=== PATIENT | male | born 2000 | race Hispanic/Latino ===

== ENCOUNTER 2021-02-07 20:33 | Emergency (ER) | payer SELFPAY ==
--- NOTE | 2021-02-07 22:35 | EDPHYS ---
Physician Documentation [facility] Name: Javier Vincent Jr Age: 20 yrs Sex: Male : 2000 Arrival Date: 02/07/2021 Time: 20:36 Bed Treatment Private MD: ED Physician Jamin Valles HPI: 02/07 23:15 This 20 yrs old Male presents to ER via Ambulatory with complaints of Knee kb Injury. 23:15 The patient presents with pain, swelling, tenderness. The complaints affect the left kb knee. Context: The problem was sustained at work, resulted from the patient falling, the patient can fully bear weight, the patient is able to ambulate, Problem is a result from a previous injury: No. Onset: The symptoms/episode began/occurred today. Modifying factors: The symptoms are alleviated by nothing. the symptoms are aggravated by weight bearing. Associated signs and symptoms: Pertinent positives: swelling, Pertinent negatives calf tenderness, fever, nausea, numbness, rash, tingling, vomiting, warmth, weakness. Treatment prior to arrival includes: no previous treatment. Severity of symptoms: At their worst the symptoms were mild, in the emergency department the symptoms are unchanged. The patient has not experienced similar symptoms in the past. The patient has not recently seen a physician. Patient reports he fell at work on 2 left knee and felt his knee slide out of place. States he came to make sure that nothing was torn. Full range of motion patient ambulates with steady gait.. Historical: - Allergies: 21:19 No Known Allergies; ca1 - Home Meds: 21:19 None [Active]; ca1 - PMHx: 21:19 None; ca1 - PSHx: 21:19 None; ca1 - Immunization history:: Client reports having NOT received the Covid vaccine. Flu vaccine is up to date. - Social history:: Smoking status: Patient denies any tobacco usage or history of. ROS: 23:12 Constitutional: Negative for fever, chills, and weight loss. kb 23:12 MS/extremity: Positive for pain, swelling, of the left knee. 23:12 All other systems are negative. Exam: 23:12 Constitutional: This is a well developed, well nourished patient who is awake, alert, kb and in no acute distress. Head/Face: Normocephalic, atraumatic. ENT: Moist Mucous membranes Respiratory: Respirations even and unlabored. No increased work of breathing, no retractions or nasal flaring. Skin: Warm, dry with normal turgor. Normal color. Neuro: Awake and alert, GCS 15, oriented to person, place, time, and situation. Moves all extremities. Normal gait. Psych: Awake, alert, with orientation to person, place and time. Behavior, mood, and affect are within normal limits. 23:12 Musculoskeletal/extremity: Extremities: grossly normal except: noted in the left knee: pain, swelling, tenderness, ROM: intact in all extremities, Circulation is intact in all extremities. Sensation intact. Weight bearing: able to fully bear weight. Vital Signs: 21:17 BP 137 / 81; Pulse 98; Resp 18 S; Temp 98.9(TE); Pulse Ox 100% on R/A; Weight 113.4 kg ca1 (R); Height 5 ft. 6 in. (167.64 cm) (R); Pain 3/10; 23:01 BP 124 / 58; Pulse 90; Resp 16 S; Pulse Ox 98% on R/A; bb 21:17 Body Mass Index 40.35 (113.40 kg, 167.64 cm) ca1 MDM: 22:00 Patient medically screened. kb 23:12 Data reviewed: vital signs, nurses notes. Data interpreted: Pulse oximetry: on room air kb is 98 %. Interpretation: normal. Counseling: I had a detailed discussion with the patient and/or guardian regarding: the historical points, exam findings, and any diagnostic results supporting the discharge/admit diagnosis, radiology results, the need for outpatient follow up, a orthopedic surgeon, to return to the emergency department if symptoms worsen or persist or if there are any questions or concerns that arise at home. 02/07 21:20 Order name: Knee Left 3 View XRAY ca1 02/07 22:34 Order name: Knee Immobilizer; Complete Time: 22:59 kb Administered Medications: No medications were administered Disposition Summary: 02/07/21 22:35 Discharge Ordered Location: Home kb Condition: Stable kb Diagnosis - Sprain of other specified parts of left knee kb Followup: kb - With: Emergency Department - When: As needed - Reason: Worsening of condition Followup: kb - With: Private Physician - When: 2 - 3 days - Reason: Recheck today's complaints, Continuance of care, Re-evaluation by your physician Discharge Instructions: - Discharge Summary Sheet kb - Knee Sprain, Adult, [id number] kb Forms: - Medication Reconciliation Form kb - Thank You Letter kb - Antibiotic Education kb - Prescription Opioid Use kb - Work release form tt3 Prescriptions: - Ibuprofen 800 mg Oral Tablet - take 1 tablet by ORAL route every 8 hours As needed take with food; 30 tablet; kb Refills: 0, Product Selection Permitted Signatures: Dispatcher [employer] Gayatri Dahl, DIRECTOR OF OCCUPATIONAL HEALTH-C Carmina Harp RN RN ca1
--- NOTE | 2021-02-07 22:35 | ER ---
Nurse's Notes [facility] Name: Javier Vincent Jr Age: 20 yrs Sex: Male : 2000 Arrival Date: 02/07/2021 Time: 20:36 Bed Treatment Private MD: Diagnosis: Sprain of other specified parts of left knee Presentation: 02/07 21:17 Chief complaint: Patient states: Fell at work today at 1800 and landed on L leg and I ca1 felt my L knee go sideways. Coronavirus screen: Client denies travel out of the [place] in the last 14 days. At this time, the client does not indicate any symptoms associated with coronavirus-19. Ebola Screen: Patient negative for fever greater than or equal to 101.5 degrees Fahrenheit, and additional compatible Ebola Virus Disease symptoms Patient denies exposure to infectious person. Patient denies travel to an Ebola-affected area in the 21 days before illness onset. No symptoms or risks identified at this time. Initial Sepsis Screen: Does the patient meet any 2 criteria? No. Patient's initial sepsis screen is negative. Does the patient have a suspected source of infection? No. Patient's initial sepsis screen is negative. Risk Assessment: Do you want to hurt yourself or someone else? Patient reports no desire to harm self or others. Onset of symptoms was February 07, 2021. 21:17 Method Of Arrival: Ambulatory ca1 21:17 Acuity: MANISHA 4 ca1 Triage Assessment: 22:18 Injury Description: pt fell at work. bb Historical: - Allergies: 21:19 No Known Allergies; ca1 - Home Meds: 21:19 None [Active]; ca1 - PMHx: 21:19 None; ca1 - PSHx: 21:19 None; ca1 - Immunization history:: Client reports having NOT received the Covid vaccine. Flu vaccine is up to date. - Social history:: Smoking status: Patient denies any tobacco usage or history of. Screenin:16 Abuse screen: Denies threats or abuse. Nutritional screening: No deficits noted. bb Tuberculosis screening: No symptoms or risk factors identified. Fall Risk None identified. Assessment: 22:16 General: Appears in no apparent distress. uncomfortable, Behavior is calm, cooperative. bb Pain: Complains of pain in left leg. Neuro: Level of Consciousness is awake, alert, obeys commands, Oriented to person, place, time, situation. Cardiovascular: Capillary refill < 3 seconds Patient's skin is warm and dry. Respiratory: Respiratory effort is even, unlabored. GI: No signs and/or symptoms were reported involving the gastrointestinal system. Derm: Skin is pink, warm \T\ dry. Musculoskeletal: Circulation, motion, and sensation intact. 22:59 Reassessment: Patient is alert, oriented x 3, equal unlabored respirations, skin bb warm/dry/pink. knee immobilizer applied, pt verbalized understanding of and agrees to plan of care discharge instructions given pt assisted to exit via wheelchair accompanied by health information technician. Vital Signs: 21:17 BP 137 / 81; Pulse 98; Resp 18 S; Temp 98.9(TE); Pulse Ox 100% on R/A; Weight 113.4 kg ca1 (R); Height 5 ft. 6 in. (167.64 cm) (R); Pain 3/10; 23:01 BP 124 / 58; Pulse 90; Resp 16 S; Pulse Ox 98% on R/A; bb 21:17 Body Mass Index 40.35 (113.40 kg, 167.64 cm) ca1 ED Course: 20:36 Patient arrived in ED. es 21:19 Triage completed. ca1 21:19 Arm band placed on right wrist. ca1 21:50 Gayatri Singh FNP-C is [facility]. kb 21:50 Jamin Valles MD is Attending Physician. kb 22:16 Marine Mendiola, RN is Primary Nurse. bb 22:16 Patient has correct armband on for positive identification. bb 22:41 Knee Left 3 View XRAY In Process Unspecified. EDMS 23:01 No provider procedures requiring assistance completed. Patient did not have IV access bb during this emergency room visit. Administered Medications: No medications were administered Outcome: 22:35 Discharge ordered by . kb 23:01 Discharged to home via wheelchair. bb 23:01 Condition: stable 23:01 Discharge instructions given to patient, Instructed on discharge instructions, follow up and referral plans. medication usage, Demonstrated understanding of instructions, follow-up care, Prescriptions given X 1. 23:02 Patient left the ED. bb Signatures: Dispatcher [employer] EDPR Gayatri Singh FNP-C FNP-Ckb IgnacioClaritza lee Brenda, RN RN bb Carmina Jones, RN RN ca1
[2021-02-08 03:48] VITALS: TEMP 98.9
[2021-02-08 03:50] VITALS: BP 124/58; O2SAT 98
--- NOTE | 2021-02-08 09:09 | RAD REPORT ---
EXAM DESCRIPTION: RAD - Knee Left 3 View - 02/07/2021 10:41 pm CLINICAL HISTORY: Left knee pain FINDINGS: No fracture or dislocation is seen. No bone or joint abnormality seen. If patient's pain persists then a followup x-ray in 4 weeks would recommended for re-evaluation
== END 2021-02-07 23:02 | disposition home or self-care (01) ==
LOC: ER 20:33
DX: S83.8X2A Sprain of other specified parts of left knee, initial encounter (principal); W19.XXXA Unspecified fall, initial encounter; Y92.89 Other specified places as the place of occurrence of the external cause; Y99.8 Other external cause status
CPT/HCPCS: 99283